=== PATIENT | male | born 1975 | race African-American/Black ===

== ENCOUNTER 2022-10-03 10:49 | Outpatient (CLI) | payer BC, SELFPAY ==
[2022-10-03 22:41] LABS: Albumin* 4.3 g/dL (3.3-5.0)
[2022-10-03 22:44] LABS: Alanine Aminotransferase* 19 U/L (4-50); Alkaline Phosphatase* 45 U/L (40-150); Aspartate Amino Transferase* 29 U/L (12-35); Bilirubin Direct* 0.2 mg/dL (0.0-0.5); Bilirubin Total* 0.5 mg/dL (0.1-1.5); Total Protein* 7.4 g/dL (6.0-8.3)
[2022-10-03 23:09] LABS: PSA Screen* 0.86 ng/mL (0.10-4.00)
== END 2022-10-03 10:50 | disposition home or self-care (01) ==
PROVIDERS: PCP Family Medicine; Visit Provider Family Medicine
DX: Z00.00 Encounter for general adult medical examination without abnormal findings (principal); I10 Essential (primary) hypertension; Z12.5 Encounter for screening for malignant neoplasm of prostate
CPT/HCPCS: 80076; 84153

== ENCOUNTER 2023-11-17 10:26 | Outpatient (CLI) | payer BC, SELFPAY | END 2023-11-17 10:27 | disposition home or self-care (01) | PROVIDERS: PCP Family Medicine; Visit Provider Family Medicine | DX: E78.00 Pure hypercholesterolemia, unspecified (principal); I10 Essential (primary) hypertension; R50.9 Fever, unspecified; Z00.00 Encounter for general adult medical examination without abnormal findings | CPT/HCPCS: 80061; 80076; G0103 ==

== ENCOUNTER 2024-06-19 13:14 | Outpatient (CLI) | payer BC, SELFPAY | END 2024-06-19 13:15 | disposition home or self-care (01) | LOC: LKVREF 13:15 | PROVIDERS: PCP Family Medicine; Visit Provider Emergency Medicine | DX: Z00.00 Encounter for general adult medical examination without abnormal findings (principal); I10 Essential (primary) hypertension; E87.6 Hypokalemia | CPT/HCPCS: 80048 ==

== ENCOUNTER 2025-09-05 15:05 | Outpatient (CLI) | payer SELFPAY | END 2025-09-05 15:06 | disposition home or self-care (01) | LOC: NFLDREF 09-08 13:12 | PROVIDERS: PCP Family Medicine; Referring Provider Family Medicine; Visit Provider Family Medicine | DX: Z00.00 Encounter for general adult medical examination without abnormal findings (principal); I10 Essential (primary) hypertension | CPT/HCPCS: 80053; 80061 ==